=== PATIENT | male | born 1930 | race Caucasian/White ===

== ENCOUNTER 2017-08-15 12:34 | Inpatient (IN) | payer BC, MEDICARE ==
[~2017-08-15] VITALS: Ht 172.7 cm; Wt 90.0 kg
[~2017-08-15 12:34] MED LIST: ACET325T45 PO; AMLO-218 PO; ASPI81TA3 PO; DOCU-144 PO; FINA5TAB PO; LISI40TA9 PO; MELO-210 PO; METF500T4 PO; MULT-876 PO; NIAC500T81 PO; OMEP20CA16 PO; SENN-53 PO; SIME80TA PO; TERA2CAP3 PO
[2017-08-15] MEDS ORDERED: ONDANSETRON 4 MG INJ IV STA (12:37)
[2017-08-15] MEDS ORDERED: morphine 4 MG/ML VIAL IV STA (12:37)
[2017-08-15] MEDS ORDERED: ACETAMINOPHEN 325 MG TAB PO PRN (13:30)
[2017-08-15] MEDS ORDERED: ONDANSETRON 4 MG INJ IV PRN ×2 (13:30→16:00)
[2017-08-15 13:38] LABS: BASOPHIL # 0.1 10^3/ul (0.0-0.1); BASOPHILS % 0.9 % (0.0-2.0); EOSINOPHILS # 0.4 10^3/ul (0.0-0.5); EOSINOPHILS % 4.6 % (0.0-7.0); HEMATOCRIT 32.1 % (42.0-52.0); HEMOGLOBIN 10.4 g/dl (14.0-18.0); LYMPHOCYTES # 1.5 10^3/ul (0.8-2.9); LYMPHOCYTES % 17.3 % (15.0-51.0); MEAN CORPUSCULAR HEMOGLOBIN 27.2 pg (29.0-33.0); MEAN CORPUSCULAR HGB CONC 32.4 g/dl (32.0-37.0); MEAN CORPUSCULAR VOLUME 83.8 fl (82.0-101.0); MONOCYTE # 0.7 10^3/ul (0.3-0.9); MONOCYTES % 8.3 % (0.0-11.0); NEUTROPHIL # 5.8 10^3/ul (1.6-7.5); NEUTROPHILS % 68.1 % (39.0-77.0); PLATELET COUNT 234 10^3/UL (140-415); RED BLOOD COUNT 3.83 10^6/ul (4.70-6.10); WHITE BLOOD COUNT 8.6 10^3/ul (4.8-10.8)
--- NOTE | 2017-08-15 13:48 | RADRPT ---
PROCEDURE: CT Abdomen and Pelvis without contrast. CLINICAL INDICATION: Abdominal pain TECHNIQUE: CT scan of the abdomen and pelvis was performed on a multidetector high-resolution CT s canner without intravenous contrast. Coronal and sagittal reformatted images were obtained from the axial source images. Images were reviewed on a high-resolution PACS workstation. The total exam CTD I equals 19mGy and the total exam DLP equals 1318mGy-cm. One or more of the following dose reduction techniques were used: Automated exposure control, Adjustment of the mA and/or kV according to patie nt size, and/or use of iterative reconstruction technique. DICOM images are available. COMPARISON: Abdominal CT 08/14/2016 FINDINGS: Evaluation of the solid organs is limited given the lack of intravenous contrast administration. Coronary arterial and aortic atherosclerosis. Atelectatic changes to the bilateral lung bases with b ilateral lower brittany bronchiolectasis. The liver, spleen, and adrenals are grossly unremarkable. Pancreas is atrophic. No focal pericholecystic inflammatory changes. No hydronephrosis. No renal or ureteral stone. Bilateral renal cyst. Large amount of stool impaction throughout the rectum and sigmoid colon with gaseous distension of t he proximal colon. No significant retroperitoneal lymphadenopathy, ascites or evidence of pneumoperitoneum. Aortoiliac atherosclerosis. Advanced degenerative changes of the spine. Osteopenia. Enlarged prostate gland bulging into the bladder. Bilateral sacroiliac joint degenerative changes. IMPRESSION: Large amount of stool impaction throughout the rectum and sigmoid colon with gaseous distension of t he proximal colon. The findings are similar to 08/14/2016. RPTAT: AA .Marvel Woodward MD, MD Date Time Electronically viewed and signed by .Marvel Woodward MD, MD on 08/15/2017 13:48 .T/
[2017-08-15 13:58] LABS: INR 1.04; PROTIME 13.6 Sec (12.2-14.2); PT RATIO 1.1
[2017-08-15 13:59] LABS: PARTIAL THROMBOPLASTIN TIME 34.3 Sec (25.0-35.0)
[2017-08-15 14:01] LABS: ALANINE AMINOTRANSFERASE 32 IU/L (13-69); ALBUMIN 4.1 g/dl (3.3-4.9); ALBUMIN/GLOBULIN RATIO 1.07; ALKALINE PHOSPHATASE 92 IU/L (42-121); ANION GAP 19 (8-16); ASPARTATE AMINO TRANSFERASE 20 IU/L (15-46); BILIRUBIN,INDIRECT 0.1 mg/dl (0-1.1); BILIRUBIN,TOTAL 0.1 mg/dl (0.2-1.3); BLOOD UREA NITROGEN 51 mg/dl (7-20); CALCIUM 9.1 mg/dl (8.4-10.2); CARBON DIOXIDE 22 mmol/L (21-31); CHLORIDE 105 mmol/L (97-110); CREATININE 1.26 mg/dl (0.61-1.24); GLUCOSE 124 mg/dl (70-220); POTASSIUM 4.9 mmol/L (3.5-5.1); SODIUM 141 mmol/L (135-144); TOTAL PROTEIN 7.9 g/dl (6.1-8.1)
--- NOTE | 2017-08-15 14:20 | RADRPT ---
PROCEDURE: XR Chest. CLINICAL INDICATION: Shortness of breath TECHNIQUE: Single portable view of the chest was obtained COMPARISON: September 09, 2016 FINDINGS: The trachea is midline. The cardiac silhouette and pulmonary vascularity are prominent. There is tor tuosity of the aorta. There is bibasilar atelectasis. The costophrenic angles are sharp. IMPRESSION: 1. Cardiomegaly and borderline central pulmonary congestion. 2. Bibasilar atelectasis. RPTAT: AAPP Physician Liliya Date Time Electronically viewed and signed by Devon Fernando Physician on 08/15/2017 14:19 JL/
[2017-08-15] MEDS ORDERED: SOD CHLORIDE 0.9% 1,000 ML IV STA (14:31)
--- NOTE | 2017-08-15 14:33 | ERD ---
ER Documentation Chief Complaint Chief Complaint SENT FROM [facility] FOR EVAL OF ABD DISTENTION WITH VOMITING HPI Patient is an 86-year-old male with diabetes who presents with abdominal pain and distention. He had 4 episodes of vomiting yesterday but nothing today. He had a CT scan done yesterday which showed a sigmoid volvulus per radiology. The patient had a bowel movement this morning however. He was somewhat Dr. Rogers for further workup and admission. Please note the history and physical exam is limited secondary to the patient's mental status. ROS All systems reviewed and are negative except as per history of present illness. Medications Home Meds Reported Medications Acetaminophen* (Acetaminophen*) 325 Mg Tablet, 650 MG PO Q4H Y for PAIN LEVEL 1- 5, #30 TAB 08/14/16 Terazosin Hcl* (Terazosin Hcl*) 2 Mg Capsule, 2 MG PO HS, CAP 08/14/16 Simethicone* (Anti-Gas/80*) 80 Mg Tab.chew, 160 MG PO TID Y for WITH MEAL, TAB.CHEW 08/14/16 Sennosides* (Senna Lax*) 8.6 Mg Tablet, 2 TAB PO BID, TAB HOLD FOR LBM 08/14/16 Finasteride* (Proscar*) 5 Mg Tablet, 5 MG PO DAILY, TAB 08/14/16 Omeprazole* (Omeprazole*) 20 Mg Capsule.dr, 20 MG PO QAM, #30 CAP 08/14/16 Amlodipine Besylate* (Norvasc*) 10 Mg Tablet, 10 MG PO DAILY, TAB HOLD FOR SBP<110 08/14/16 Niacin* (Niacin*) 500 Mg Tablet, 500 MG PO DAILY, TAB 08/14/16 Multivit-Min/Iron Fum/Folic AC (Mxsph-Alinnvf-Ghhfgrlx Tablet) 1 Each Tablet, 1 EACH PO DAILY, TAB 08/14/16 Meloxicam* (Mobic*) 15 Mg Tablet, 15 MG PO DAILY, #30 TAB 08/14/16 Metformin Hcl* (Metformin Hcl*) 500 Mg Tablet, 250 MG PO WITH BREAKFAST DINNE, # 60 TAB 08/14/16 Lisinopril* (Lisinopril*) 40 Mg Tablet, 40 MG PO DAILY, #30 TAB HOLD FOR SBP<110 08/14/16 Docusate Sodium* (Colace*) 100 Mg Capsule, 100 MG PO BID, #60 CAP 08/14/16 Aspirin* (Aspirin* Chew) 81 Mg Tab.chew, 81 MG PO DAILY, TAB.CHEW 08/14/16 Allergies Allergies: Coded Allergies: No Known Allergy (Unverified , 08/14/16) PMhx/Soc History of Surgery: No Anesthesia Reaction: Yes Hx Respiratory Disorders: No Hx Psychiatric Problems: No Hx Miscellaneous Medical Probl: Yes (CVA, HTN, GERD, OA) Hx Alcohol Use: No Hx Substance Use: No Hx Tobacco Use: No Smoking Status: Never smoker FmHx Family History: No diabetes Physical Exam Vitals Vital Signs Date Time Temp Pulse Resp B/P Pulse Ox O2 Delivery O2 Flow Rate FiO2 08/15/17 12:39 97.0 94 18 138/64 100 Physical Exam Const: No acute distress Head: Atraumatic Eyes: Normal Conjunctiva ENT: Normal External Ears, Nose and Mouth. Neck: Full range of motion..~ No meningismus. Resp: Clear to auscultation bilaterally Cardio: Regular rate and rhythm, no murmurs Abd: Tender abdomen with tympanitic bowel sounds Skin: No petechiae or rashes Back: No midline or flank tenderness Ext: No cyanosis, or edema Neur: Awake and mild confusion Result Diagram: 08/15/17 1315 08/15/17 1315 Results 24 hrs Laboratory Tests Test 08/15/17 13:15 White Blood Count 8.610^3/ul Red Blood Count 3.8310^6/ul Hemoglobin 10.4g/dl Hematocrit 32.1% Mean Corpuscular Volume 83.8fl Mean Corpuscular Hemoglobin 27.2pg Mean Corpuscular Hemoglobin Concent 32.4g/dl Red Cell Distribution Width 15.0% Platelet Count 55017^3/UL Mean Platelet Volume 9.0fl Neutrophils % 68.1% Lymphocytes % 17.3% Monocytes % 8.3% Eosinophils % 4.6% Basophils % 0.9% Nucleated Red Blood Cells % 0.0/100WBC Neutrophils # 5.810^3/ul Lymphocytes # 1.510^3/ul Monocytes # 0.710^3/ul Eosinophils # 0.410^3/ul Basophils # 0.110^3/ul Nucleated Red Blood Cells # 0.010^3/ul Prothrombin Time 13.6Sec Prothrombin Time Ratio 1.1 INR International Normalized Ratio 1.04 Activated Partial Thromboplast Time 34.3Sec Sodium Level 141mmol/L Potassium Level 4.9mmol/L Chloride Level 105mmol/L Carbon Dioxide Level 22mmol/L Anion Gap 19 Blood Urea Nitrogen 51mg/dl Creatinine 1.26mg/dl Glucose Level 124mg/dl Calcium Level 9.1mg/dl Total Bilirubin 0.1mg/dl Direct Bilirubin 0.00mg/dl Indirect Bilirubin 0.1mg/dl Aspartate Amino Transf (AST/SGOT) 20IU/L Alanine Aminotransferase (ALT/SGPT) 32IU/L Alkaline Phosphatase 92IU/L Troponin I < 0.012ng/ml Total Protein 7.9g/dl Albumin 4.1g/dl Globulin 3.80g/dl Albumin/Globulin Ratio 1.07 Lipase 114U/L Current Medications Medications (Trade) Dose Ordered Sig/Veto Route PRN Reason Start Time Stop Time Status Last Admin Dose Admin Morphine Sulfate (morphine) 4 mg ONCE STAT IV 08/15/17 12:37 08/15/17 12:38 DC Ondansetron HCl (Zofran Inj) 4 mg ONCE STAT IV 08/15/17 12:37 08/15/17 12:38 DC Ondansetron HCl (Zofran Inj) 4 mg BRIDGE ORDER PRN IV NAUSEA AND/OR VOMITING 08/15/17 13:30 08/16/17 13:29 Acetaminophen 650 mg 650 mg ER BRIDGE PRN PO MILD PAIN/FEVER 08/15/17 13:30 08/16/17 13:29 Sodium Chloride (NS) 1,000 ml @ 1,000 mls/hr Q1H STAT IV 08/15/17 14:31 08/15/17 15:30 08/15/17 14:34 Procedures/MDM CT abdomen pelvis shows constipation per radiology. Patient is a 86-year-old male presents with abdominal pain and distention. He had vomiting yesterday but he did have a bowel movement today. A CT scan done as an outpatient shows volvulus. The patient will be admitted to the care of Dr. Rogers. I spoke with Dr. Krishna who is going to have Dr. Estrada evaluate the patient as well. The patient will be admitted to a medical surgical bed. The patient has an elevated BUN and creatinine likely prerenal failure. The patient will be given 1 L of normal saline for fluid resuscitation. Departure Diagnosis: Primary Impression: Constipation Constipation type: unspecified constipation type Qualified Code: K59.00 - Constipation, unspecified constipation type Additional Impression: Abdominal pain Abdominal location: generalized Qualified Code: R10.84 - Generalized abdominal pain Condition: NATA Gomez MD Aug 15, 2017 14:33
[2017-08-15 14:34] LABS: TROPONIN-I < 0.012 ng/ml (0.00-0.12)
[2017-08-15 15:34] VITALS: BP 163/72; RESP 18
[2017-08-15 16:00] VITALS: Ht 172.7 cm; Wt 90.0 kg
[2017-08-15] MEDS ORDERED: MINERAL OIL 133 ML ENEMA PR ONE ×2 (16:00→20:00)
[2017-08-15] MEDS ORDERED: GLUCOSE GEL 15 GRAM TUBE BUCCAL PRN (16:30)
[2017-08-15] MEDS ORDERED: GLUCAGON 1 MG INJ IM PRN (16:30)
[2017-08-15] MEDS ORDERED: GLUCOSE GEL 15 GRAM TUBE PO PRN ×2 (16:30)
[2017-08-15] MEDS ORDERED: DEXTROSE 50% 50 ML SYRINGE IV PRN ×2 (16:30)
[2017-08-15] MEDS: DEXTROSE 5%-0.45% NACL 1,000 ML IV SCH (16:43)
[2017-08-15] MEDS: INSULIN ASPART [NOVOLOG] 3 ML PEN SC SCH ×2 (17:45→23:21)
[2017-08-15 20:00] VITALS: BP 145/66; RESP 22
--- NOTE | 2017-08-15 20:03 | CONS ---
DATE OF ADMISSION: 08/15/2017 DATE OF CONSULTATION: 08/15/2017 TYPE OF CONSULTATION: Surgical. REQUESTING PHYSICIAN: Dr. Rogers from Dr. Krishna and I am seeing the patient as a team of Dr. Jaclyn naik. REASON FOR CONSULTATION: Abdominal distention for maybe 3 to 4 weeks, and a couple of episodes of v omiting for the past couple of days. HISTORY OF PRESENT ILLNESS AND CHIEF COMPLAINT: This is an 86-year-old gentleman who has been a res ident of a snf for several years with other medical problems. Recently, patient has notice d that his abdomen is gradually increase in size and in the past 3 to 4 weeks it has become very dis tended, so they got some x-rays outside. There is suggestion of volvulus, so eventually today they decided to bring the patient to the emergency room. In the past couple of days, he has vomited a co uple of times, but he does not know what kind of vomitus or how much. The patient states that he yates s had a bowel movement today and yesterday, but again, he does not know how much or what color are t he bowel movements. Patient denies any abdominal pain. Actually, last year on 08/15/2016, this pat ient was admitted to this hospital almost with the same problem due to severe distention of the abdo men for about 3 weeks, and at that time, the extensive evaluation was performed including my consult ation as a general surgeon and later on consultation from Dr. aMchado, the colorectal surgeon was ob tained. My impression was that possibility of Florencia syndrome existed. Dr. Machado's impression w as that possibly patient has proctalgia fugax and recommended physical therapy for this matter and a lso he had the impression that the patient had proctalgia, and he was not sure that proctalgia could lead to obstruction or colonic distention, and he also knows the possibility of Florencia's. PAST MEDICAL HISTORY: Patient has had right-sided stroke with right-sided hemiplegia many years ago which has caused him almost to be bedridden, diabetes mellitus, hypertension, GERD, osteoarthriti s, right lower extremity cellulitis. PAST SURGICAL HISTORY: 1. History of operation on the right great toe in the past. 2. Vein stripping for varicose veins many years ago on both sides. 3. Biopsy of the skin cancer on the face, mainly on the left side. 4. History of back surgery. The patient is not sure about it and does not know when, and how, and for what reason. ALLERGIES: Not known. SOCIAL HISTORY: Patient is negative for tobacco ad ETOH. The patient, as mentioned, is a resident of a snf. The reason is because of the right side hemiparesis and hemiplegia. MEDICATIONS: Please refer to the reconciliation sheet. I am not sure exactly what medication the p atrobyn is receiving. PHYSICAL EXAMINATION: GENERAL: Patient is awake, alert, oriented, in no acute distress. He is tapping on his belly, whic h is very, very distended and denies abdominal pain. VITAL SIGNS Through the emergency room: Temperature 97.7, heart rate 68 regular, respirations 18, blood pressure 163/72, saturation 95% on room air. HEENT: Normocephalic. Eyes: Pupils myotic. Equally reactive to light a little bit. Full range o f motion of the extraocular muscles, but there is redness of the left eye with some evidence of blep haritis, also some blepharitis on the right side, and conjunctivitis. Mouth: Full artificial dentu res. NECK: Trachea is in midline. No thyroid enlargement. HEART: Regular rhythm. Grade II systolic ejection murmur. LUNGS: Clear to auscultation. ABDOMEN: Is round, is very distended, especially the upper part. The bowel sounds to me are hypoac tive. There is no guarding. There is tenderness. There is no rebound tenderness. There are no pe ritoneal irritation sign. EXTREMITIES: Upper extremities: Right elbow is flexed and right hand is flexed, and is difficult t o them, almost flexion contracture. The side is normal and the patient moves full range. The patie nt can raise the left leg and left thigh to some extent, but the right side he cannot. The right si de spastic actually is powerless, but there is no flexion contracture on the right or left lower ex tremity. Dorsalis pedis and posterior tibialis, on both sides, is not palpable. Popliteal pulses a re 1+ on both sides. The skin of the lower extremities is warm. LABORATORY DATA: WBC 8600, hemoglobin 10.4, hematocrit 32.1. Differential is 68% neutrophils, whic h is normal. Chemistry: Sodium and potassium normal. Anion gap 19, high. BUN 51, creatinine 1.26 , sign of dehydration possibly. AST, ALT, alkaline phosphatase normal. Albumin 4.1, globulin is 3. 8. IMAGING: Chest x-ray: Cardiomegaly and borderline central pulmonary congestion, bibasilar atelecta sis. CT scan of the abdomen and pelvis was done in the emergency room today without any contrast. The following has been the impression: Large amount of stool impaction throughout the rectum and si gmoid colon with gaseous distention of the proximal colon. The findings are similar to 08/14/2016. This was read by Dr. Guardado. Last piece of information. Physically, I did a rectal examination. There is some excoriation of th e skin of the preanal area posteriorly with probable stage II pressure ulcers on both sides. Rectal examination: The superficial sphincter is lax. The deep sphincter has a good grasping power, but at the level of the deep sphincter, to me there is a tight circumferential ring which is very tender and barely the patient lets me to pass the tip of my index through this, and this is exactly like w hat the patient had last year. Eventually I was able to pass through that one, with the patient fee ling a lot of pain, and beyond that the patient was able to contract his deep sphincter muscle to so me extent. ASSESSMENT: This is an 86-year old gentleman, resident of a snf, in a state of almost bedr idden, except that he is able to sit down on the chair at the bedside. He is not able to walk, the reason being a right hemiparesis. The patient was transferred from snf because of severe d istention of the abdomen. This gradually has increased in size, more aggravated in the past 3 to 4 weeks. So the patient has the following problems: 1. Right-sided hemiplegia. 2. Severely distended large bowel, sigmoid colon, and transverse colon, with some fecal impaction i n the rectum and distal sigmoid colon per CT scan. 3. 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 4. Nontoxic megacolon (Florencia syndrome), question of the cause. 5. Questionable autonomic nervous system disturbances of the colon and rectal area, question of ca use and type. 6. Diabetes mellitus. 7. Hypertension. 8. Stage II bedsore. PLAN AND SUGGESTIONS: 1. At this point of time we are trying to do disimpaction for this patient by giving him some Fleet mineral enemas, I am going to give right now today. 2. Keep patient n.p.o. 3. If it is needed, we may have to put an NG tube to decompress the air from the stomach and small bowel as well. 4. We have to find out about the exact nature of these tender ring or tenderness of the pelvic floo r and probably we are going to get a consultation from another colorectal surgeon. 5. Need to renew and to continue all other medication that the patient has been taking at the [facility]. 6. GI protection against bleeding with Protonix. 7. Prophylaxis against deep vein thrombosis. Dr. Rogers, the internal medicine colleague and who is the primary admitting physician, will take care of the other problems. Dictated By: SHAUNNA FELDMAN/NGOC Conf#: [id number] DID#: [id number]
[2017-08-15] MEDS ORDERED: hydrALAzine 20 MG INJ IV PRN (22:30)
--- NOTE | 2017-08-16 01:04 | HP ---
DATE OF ADMISSION: 08/15/2017 CHIEF COMPLAINT: Abdominal distention and vomiting. HISTORY OF PRESENT ILLNESS: The patient is an 86-year-old gentleman well known to me from previous several admissions. 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 The patient also has history of Florencia syndrome and was at one time thoug ht to be a surgical candidate for diverting colostomy; however, the patient improved with medical ma nagement. The patient was recuperating in a [facility] facility and was noted to have nausea, vomiting and abdominal distension for the last 24 hours. The patient denied any abdominal pain. Th e patient did have a bowel movement yesterday as well as today. The patient reported tht his abdome n feels gassy and tympanic ____. The patient did not have any fever or chills. No history of chest pain. No history of new neurological deficit. No history of diarrhea. No history of hematemesis or melena. No history of headache, dizziness, syncope. The patient did not have any new neurologic al deficit. No history of seizures. The patient was sent to [facility] ER for further lars luation. The patient was seen by ER physician. The patient underwent extensive workup in ER which included a CBC which revealed hemoglobin of 10.4, WBC 8.6, platelet 234. Chemistry: Sodium was 14 1, potassium 4.9, BUN 51, creatinine 1.2 up from a BUN of 33 and creatinine 0.8 back in August. The patient had normal liver enzymes, normal lipase. CT of the abdomen and pelvis revealed a la rge amount of stool impaction throughout the rectum and sigmoid colon with gaseous distention of the proximal colon. Findings are similar to 08/14/2016. The patient is being admitted for further lars luation and management. REVIEW OF SYSTEMS: Total of 12 systems were reviewed and all pertinent positive and negative findin gs have been described in HPI. The rest of the review of systems is unremarkable. The patient is n onambulatory and stays mostly in the bed, and is bed to wheelchair bound at baseline. The patient i s awake, alert, and fairly oriented. PAST MEDICAL HISTORY: The patient back in 2015 was admitted for similar presentation and underwent colonoscopy. The patient was noted to have massively dilated ascending colon up to ascending colon . The scope could not be advanced to the cecum. ____ was noted. Biopsies revealed focal active co litis, nonspecific. No however, were revealed a focal active colitis, nonspecific. No ____ was i dentified. PAST SURGICAL HISTORY: The patient has a history of skin cancer resection from the face, multiple l ocations, low back surgery and minor surgery on his toes for ingrown toenail. FAMILY HISTORY: Noncontributory. SOCIAL HISTORY: No smoking, no alcohol. The patient is a retired pharmacist. ALLERGIES: NONE. MEDICATIONS: Prior to admission, patient was on: 1. Norvasc. 2. Lisinopril, 3. Niacin. 4. Terazosin. 5. Tylenol. 6. Aspirin. 7. Mobic. 8. Colace. 9. Omeprazole. 10. Senna. 11. Simethicone. 12. Metformin. 13. Multivitamin and Proscar. PHYSICAL EXAMINATION: GENERAL: The patient is conscious, awake, alert, fairly oriented. VITAL SIGNS: Temperature 97, pulse 94, respirations 18, blood pressure 138/60, O2 saturation 100% o n room air. HEENT: Atraumatic, normocephalic. Conjunctivae and lids normal. Oropharynx clear. NECK: Supple. No thyromegaly. CHEST: Fairly clear. No use of accessory muscles. CARDIOVASCULAR: ____ normal. Soft systolic murmur heard. ABDOMEN: Soft, distended, nontender, but tympanic. Hyperactive bowel sounds. EXTREMITIES: No leg edema. No clubbing or cyanosis. NEUROLOGICAL: The patient is awake, alert, fairly oriented with dense right hemiplegia is add seque ntial compression devices. LABORATORIES: As above. IMPRESSION: 1. Nontoxic samuel colon/Florencia syndrome. The patient will be kept n.p.o. and will give enema due t o stool infection. Questionable history of anal stenosis as per colonoscopy report. The patient w as seen by Dr. Estrada and clinical impression was spastic anorectal area. Continue to monitor. 2. Diabetes. The patient will be put on sliding scale insulin for now. 3. Acute kidney injury. Continue IV fluids and will continue to monitor renal function. 4. Hypertension. Will start him on IV hydralazine on a p.r.n. basis. 5. BPH. Will hold off on medication until he is able to take p.o. 6. Prophylaxis. Will give GI prophylaxis with Protonix and DVT prophylaxis with Lovenox. Plan of care discussed with the ER physician, Dr. Donavan Steel as well as the patient's daughter. A surgical consultation with Dr. Estrada has been obtained. We will continue to follow him closely. Dictated By: NIRMAL CHERRY/NGOC Conf#: [id number] DID#: [id number]
[2017-08-16 02:00] VITALS: BP 134/66; RESP 20
[2017-08-16] MEDS: DEXTROSE 5%-0.45% NACL 1,000 ML IV SCH ×4 (02:51→23:05)
[2017-08-16] MEDS: PANTOPRAZOLE 40 MG INJ IV SCH (05:35)
[2017-08-16] MEDS: INSULIN ASPART [NOVOLOG] 3 ML PEN SC SCH ×3 (05:39→17:17)
[2017-08-16 06:15] LABS: BASOPHIL # 0.1 10^3/ul (0.0-0.1); BASOPHILS % 1.2 % (0.0-2.0); EOSINOPHILS # 0.5 10^3/ul (0.0-0.5); EOSINOPHILS % 8.6 % (0.0-7.0); HEMATOCRIT 29.4 % (42.0-52.0); HEMOGLOBIN 9.3 g/dl (14.0-18.0); LYMPHOCYTES # 1.2 10^3/ul (0.8-2.9); LYMPHOCYTES % 19.4 % (15.0-51.0); MEAN CORPUSCULAR HEMOGLOBIN 26.7 pg (29.0-33.0); MEAN CORPUSCULAR HGB CONC 31.6 g/dl (32.0-37.0); MEAN CORPUSCULAR VOLUME 84.5 fl (82.0-101.0); MEAN PLATELET VOLUME 9.1 fl (7.4-10.4); MONOCYTE # 0.6 10^3/ul (0.3-0.9); MONOCYTES % 9.8 % (0.0-11.0); NEUTROPHIL # 3.6 10^3/ul (1.6-7.5); NEUTROPHILS % 60.3 % (39.0-77.0); PLATELET COUNT 201 10^3/UL (140-415); RED BLOOD COUNT 3.48 10^6/ul (4.70-6.10); RED CELL DISTRIBUTION WIDTH 14.8 % (11.5-14.5)
[2017-08-16 08:02] VITALS: BP 140/66; RESP 16
[2017-08-16 08:04] LABS: CREATININE 0.85 mg/dl (0.61-1.24); MAGNESIUM 1.7 mg/dl (1.7-2.5); POTASSIUM 4.4 mmol/L (3.5-5.1)
[2017-08-16] MEDS: ENOXAPARIN 40 MG/0.4 ML SYG SC SCH (08:46)
[2017-08-16] MEDS ORDERED: ENOXAPARIN 40 MG/0.4 ML SYG SC SCH (09:00)
[2017-08-16] MEDS ORDERED: MINERAL OIL 133 ML ENEMA PR ONE (12:00)
[2017-08-16] MEDS: MINERAL OIL 30ML CUP PO SCH ×2 (12:38→20:23)
--- NOTE | 2017-08-16 13:19 | PN ---
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 - Clear liquid diet per surgery - Dr. Estrada - Continue to monitor. - Fleet enema due to stool infection.BM X2 today 2. Diabetes. The patient will be put on sliding scale insulin for now. 3. Acute kidney injury- resolved - Continue IV fluids and will continue to monitor renal function. 4. Hypertension. Will start him on IV hydralazine on a p.r.n. basis. 5. BPH. Will hold off on medication until he is able to take p.o. 6. Protonix for GI prophylaxis 7. Lovenox for DVT prophylaxis Dw Dr Bullock/ staff Exam/Review of Systems Vital Signs Vitals Vital Signs Date Time Temp Pulse Resp B/P Pulse Ox O2 Delivery O2 Flow Rate FiO2 08/16/17 08:02 98.5 56 16 140/66 92 Intake and Output 08/15/17 08/15/17 08/16/17 14:59 22:59 06:59 Intake Total 200 ml 1050 ml Balance 200 ml 1050 ml Exam Constitutional: alert Cardiovascular: nl pulses Gastrointestinal: other, soft Results Result Diagram: 08/16/17 0543 08/16/17 0719 Results 24 hrs Laboratory Tests Test 08/15/17 13:15 08/15/17 17:44 08/15/17 23:14 08/16/17 05:38 White Blood Count 8.6 Red Blood Count 3.83 L Hemoglobin 10.4 L Hematocrit 32.1 L Mean Corpuscular Volume 83.8 Mean Corpuscular Hemoglobin 27.2 L Mean Corpuscular Hemoglobin Concent 32.4 Red Cell Distribution Width 15.0 H Platelet Count 234 Mean Platelet Volume 9.0 Neutrophils % 68.1 Lymphocytes % 17.3 Monocytes % 8.3 Eosinophils % 4.6 Basophils % 0.9 Nucleated Red Blood Cells % 0.0 Neutrophils # 5.8 Lymphocytes # 1.5 Monocytes # 0.7 Eosinophils # 0.4 Basophils # 0.1 Nucleated Red Blood Cells # 0.0 Prothrombin Time 13.6 Prothrombin Time Ratio 1.1 INR International Normalized Ratio 1.04 Activated Partial Thromboplast Time 34.3 Sodium Level 141 Potassium Level 4.9 Chloride Level 105 Carbon Dioxide Level 22 Anion Gap 19 H Blood Urea Nitrogen 51 H Creatinine 1.26 H Glucose Level 124 Calcium Level 9.1 Total Bilirubin 0.1 L Direct Bilirubin 0.00 Indirect Bilirubin 0.1 Aspartate Amino Transf (AST/SGOT) 20 Alanine Aminotransferase (ALT/SGPT) 32 Alkaline Phosphatase 92 Troponin I < 0.012 Total Protein 7.9 Albumin 4.1 Globulin 3.80 H Albumin/Globulin Ratio 1.07 Lipase 114 Bedside Glucose 108 112 112 Test 08/16/17 05:43 08/16/17 07:19 08/16/17 12:03 White Blood Count 6.0 # Red Blood Count 3.48 L Hemoglobin 9.3 L Hematocrit 29.4 L Mean Corpuscular Volume 84.5 Mean Corpuscular Hemoglobin 26.7 L Mean Corpuscular Hemoglobin Concent 31.6 L Red Cell Distribution Width 14.8 H Platelet Count 201 Mean Platelet Volume 9.1 Neutrophils % 60.3 Lymphocytes % 19.4 Monocytes % 9.8 Eosinophils % 8.6 H Basophils % 1.2 Nucleated Red Blood Cells % 0.0 Neutrophils # 3.6 Lymphocytes # 1.2 Monocytes # 0.6 Eosinophils # 0.5 Basophils # 0.1 Nucleated Red Blood Cells # 0.0 Sodium Level 142 Potassium Level 4.4 Chloride Level 108 Carbon Dioxide Level 25 Anion Gap 13 Blood Urea Nitrogen 32 #H Creatinine 0.85 Glucose Level 141 Calcium Level 9.0 Magnesium Level 1.7 Bedside Glucose 113 Medications Medications Current Medications Dextrose/Sodium Chloride (D5-1/2ns) 1,000 ml @ 100 mls/hr Q10H IV Last administered on 08/16/17 12:40; Admin Dose 100 MLS/HR; Start 08/15/17 at 16: 00 Pantoprazole (Protonix Iv) 40 mg DAILY@06 IV Last administered on 08/16/17 05 :35; Admin Dose 40 MG; Start 08/16/17 at 06:00 Insulin Aspart (Novolog Insulin Pen) NOVOLOG *MILD* ALGORITHM Q6 SC ; Start at 18:00 Ondansetron HCl (Zofran Inj) 4 mg Q4H PRN IV NAUSEA AND/OR VOMITING; Start at 16:00 Miscellaneous Information 1 ea NOTE XX ; Start 08/15/17 at 16:30 Glucose (Glutose) 15 gm Q15M PRN PO DECREASED GLUCOSE; Start 08/15/17 at 16:30 Glucose (Glutose) 22.5 gm Q15M PRN PO DECREASED GLUCOSE; Start 08/15/17 at 16: 30 Dextrose (D50w Syringe) 25 ml Q15M PRN IV DECREASED GLUCOSE; Start 08/15/17 at 16:30 Dextrose (D50w Syringe) 50 ml Q15M PRN IV DECREASED GLUCOSE; Start 08/15/17 at 16:30 Glucagon (Glucagen) 1 mg Q15M PRN IM DECREASED GLUCOSE; Start 08/15/17 at 16: 30 Glucose (Glutose) 15 gm Q15M PRN BUCCAL DECREASED GLUCOSE; Start 08/15/17 at 16:30 Enoxaparin Sodium (Lovenox) 30 mg DAILY SC Last administered on 08/16/17 08: 46; Admin Dose 30 MG; Start 08/16/17 at 09:00 Hydralazine HCl (Apresoline) 10 mg Q4H PRN IV SBP>150, dbp>95; Start 08/15/17 at 22:30 Mineral Oil (Mineral Oil) 30 ml TID PO Last administered on 08/16/17 12:38; Admin Dose 30 ML; Start 08/16/17 at 13:00 MICHAELA SHULTZ Aug 16, 2017 13:04
--- NOTE | 2017-08-16 14:18 | PN ---
DATE: 08/16/2017 SUBJECTIVE: States that he is very hungry. He does not know if he has had a bowel movement or not but per nurse, the patient had 2 big bowel movements last night after Fleet enema and today he has h ad a small bowel movement. No nausea, no vomiting. OBJECTIVE: GENERAL: Alert, awake, oriented x3, comfortable, in no acute distress. VITAL SIGNS: Temperature 98.5, heart rate 56, respirations 16, blood pressure 140/66, saturation 93 % on room air. LABS: Sodium, potassium normal. BUN decreased to 32, creatinine decreased to 0.85, normal limits. Calcium is 9. Hemogram: WBC 6000 with 60% neutrophils, hemoglobin 9.3, hematocrit 29.4. HEART: Regular. LUNGS: Clear. ABDOMEN: Still distended, but is much softer than last night. Bowel sounds are present. I would s ay is 2+/4+, so it is not normal. EXTREMITIES: Lower extremities are the same. ASSESSMENT: An 86-year-old gentleman who was admitted because of severe distention of the abdomen, gradually increase in the past 2 to 3 months. 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 CT scan yesterday in the emergency room revealed that there is a lot of stool in the rectum and in the sigmoid colon with proximal distention and dilatation of the parti al small bowel loops, causing severe distension and dilatation. PLAN: 1. Start patient on clear liquid. 2. Give mineral oil p.o. 30 mL p.o. t.i.d. 3. Also give Fleet mineral oil enema one today. 4. Patient needs further evaluation in regard to the possible pathology in the anal canal or anorec jerome junction. I will discuss more detail with Dr. Rogers tomorrow and will see if we have to get a consultation from an experienced colorectal surgeon. 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 Possible intrinsic pathology in the anorectal junction. Dictated By: SHAUNNA FELDMAN/NGOC Conf#: [id number] DID#: [id number]
[2017-08-16 15:22] VITALS: BP 164/73; RESP 16
[2017-08-16 20:00] VITALS: BP 173/73; RESP 20
[2017-08-16 22:22] VITALS: BP 144/81; PULSE 77; RESP 18
[2017-08-17 02:00] VITALS: BP 145/65; RESP 20
[2017-08-17] MEDS: PANTOPRAZOLE 40 MG INJ IV SCH (05:34)
[2017-08-17] MEDS: INSULIN ASPART [NOVOLOG] 3 ML PEN SC SCH ×4 (05:36→17:19)
[2017-08-17 05:58] LABS: BASOPHIL # 0.1 10^3/ul (0.0-0.1); BASOPHILS % 1.2 % (0.0-2.0); EOSINOPHILS # 0.5 10^3/ul (0.0-0.5); EOSINOPHILS % 8.2 % (0.0-7.0); HEMATOCRIT 33.2 % (42.0-52.0); HEMOGLOBIN 10.7 g/dl (14.0-18.0); LYMPHOCYTES # 1.2 10^3/ul (0.8-2.9); MEAN CORPUSCULAR HEMOGLOBIN 26.9 pg (29.0-33.0); MEAN CORPUSCULAR HGB CONC 32.2 g/dl (32.0-37.0); MEAN CORPUSCULAR VOLUME 83.4 fl (82.0-101.0); MEAN PLATELET VOLUME 9.1 fl (7.4-10.4); MONOCYTE # 0.7 10^3/ul (0.3-0.9); MONOCYTES % 11.2 % (0.0-11.0); NEUTROPHIL # 3.4 10^3/ul (1.6-7.5); NEUTROPHILS % 57.7 % (39.0-77.0); PLATELET COUNT 226 10^3/UL (140-415); RED BLOOD COUNT 3.98 10^6/ul (4.70-6.10); RED CELL DISTRIBUTION WIDTH 14.6 % (11.5-14.5); WHITE BLOOD COUNT 5.8 10^3/ul (4.8-10.8)
[2017-08-17 06:37] LABS: CALCIUM 8.9 mg/dl (8.4-10.2); CREATININE 0.79 mg/dl (0.61-1.24); POTASSIUM 4.2 mmol/L (3.5-5.1)
[2017-08-17 08:19] VITALS: BP 144/64; RESP 18
[2017-08-17] MEDS: MINERAL OIL 30ML CUP PO SCH ×3 (08:46→20:50)
[2017-08-17] MEDS: ENOXAPARIN 40 MG/0.4 ML SYG SC SCH (08:50)
[2017-08-17] MEDS: DEXTROSE 5%-0.45% NACL 1,000 ML IV SCH ×2 (11:43→20:51)
[2017-08-17 14:19] VITALS: BP 142/70; RESP 18
--- NOTE | 2017-08-17 14:46 | PN ---
DATE: 08/17/2017 SUBJECTIVE: No new complaints No nausea, no vomiting. He does not know if he has had bowel movement or not, but according to the nurse's documentation has had bowel movement yesterday and a small amount today. OBJECTIVE GENERAL: Awake, alert, oriented x3, in no acute distress. VITAL SIGNS: Temperature 97.7, heart rate 59, respirations 18, blood pressure 144/64, saturation 96% on room air. LABORATORY DATA: Today sodium and potassium normal, BUN and creatinine normal. Calcium 8.9. .Hematology: Hemoglobin 5.8, WBC 5600 with 57% neutrophils. Hemoglobin is 10.7, hematocrit is 33.2. HEART: Regular. LUNGS: Clear. ABDOMEN: Still is distended but is at least 50% softer than before. Bowel sounds 2+ to 3+/4+. EXTREMITIES: Legs no calf tenderness. ASSESSMENT: An 86-year-old gentleman who was transferred to the long term because of severe distention of the abdomen and was admitted and was found to have fecal impaction in the rectum, sigmoid and proximal dilatation of the large and small bowel loops. The patient on rectal exam has a distended pelvic floor and possibility a ring constricting the anorectal junction area, I am not sure of the nature of this ring. Once last year, he was admitted with the same. complaining of distention and the findings were constipation and Dr. 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 He had recommended physical therapy but patient never got it and the patient is responding and is be discharged long term. Again, the same findings present. This could be a precipitating factor for constipation in the rectal fecal impaction in the rectum and sigmoid colon. Other alternatives disorder of the bowel could be the cause as well. So we are planning to get a consultation from another colorectal surgeon to see what is the nature of these physical findings and pathology in the anal canal, almost at the junction of the anus and distal rectum. This could be a levator ani syndrome or proctalgia fugax or other entities. Meanwhile, we are trying to make him have bowel movements and clear colorectal area from the impacted stool. Dictated By: SHAUNNA FELDMAN/NGOC Conf#: [id number] DID#: [id number] MTDD
--- NOTE | 2017-08-17 15:31 | PN ---
Date/Time of Note Date/Time of Note DATE: 08/17/17 TIME: 15:25 Assessment/Plan VTE Prophylaxis VTE Prophylaxis Intervention: SCD's Lines/Catheters IV Catheter Type (from Nrs): Peripheral IV Assessment/Plan Chief Complaint/Hosp Course Patient denies any pain, awake alert. Problems: Assessment/Plan - Nontoxic megacolon/Lequire syndrome. Dr. Estrada is following in general surgery consultation. Patient was started on bowel regimen and was giving enema had a bowel movement yesterday. Started on full liquid diet per surgery. -Diabetes mellitus, continue NovoLog per mild algorithm sliding scale. -Hypertension, continue Norvasc and lisinopril, continue hydralazine as needed -BPH, continue Proscar and terazosin -Acute kidney injury, resolved . Further recommendations based on clinical course. Plan of care discussed with Dr. Rogers Exam/Review of Systems Vital Signs Vitals Vital Signs Date Time Temp Pulse Resp B/P Pulse Ox O2 Delivery O2 Flow Rate FiO2 08/17/17 14:19 97.8 55 18 142/70 95 08/16/17 22:22 Room Air Intake and Output 08/16/17 08/16/17 08/17/17 15:00 23:00 07:00 Intake Total 700 ml 1720 ml Balance 700 ml 1720 ml Exam Constitutional: alert, oriented Head: normocephalic Respiratory: normal air movement Cardiovascular: nl pulses Gastrointestinal: distended, soft Extremities: normal pulses Neurological: nl mental status Results Result Diagram: 08/17/17 0537 08/17/17 0537 Results 24 hrs Laboratory Tests Test 08/16/17 17:14 08/16/17 23:34 08/17/17 05:28 08/17/17 05:37 Bedside Glucose 108 101 126 White Blood Count 5.8 Red Blood Count 3.98 L Hemoglobin 10.7 L Hematocrit 33.2 L Mean Corpuscular Volume 83.4 Mean Corpuscular Hemoglobin 26.9 L Mean Corpuscular Hemoglobin Concent 32.2 Red Cell Distribution Width 14.6 H Platelet Count 226 Mean Platelet Volume 9.1 Neutrophils % 57.7 Lymphocytes % 21.0 Monocytes % 11.2 H Eosinophils % 8.2 H Basophils % 1.2 Nucleated Red Blood Cells % 0.0 Neutrophils # 3.4 Lymphocytes # 1.2 Monocytes # 0.7 Eosinophils # 0.5 Basophils # 0.1 Nucleated Red Blood Cells # 0.0 Sodium Level 142 Potassium Level 4.2 Chloride Level 108 Carbon Dioxide Level 24 Anion Gap 14 Blood Urea Nitrogen 15 # Creatinine 0.79 Glucose Level 114 Calcium Level 8.9 Test 08/17/17 11:46 Bedside Glucose 98 Medications Medications Current Medications Dextrose/Sodium Chloride (D5-1/2ns) 1,000 ml @ 100 mls/hr Q10H IV Last administered on 08/17/17 11:43; Admin Dose 100 MLS/HR; Start 08/15/17 at 16: 00 Pantoprazole (Protonix Iv) 40 mg DAILY@06 IV Last administered on 08/17/17 05 :34; Admin Dose 40 MG; Start 08/16/17 at 06:00 Insulin Aspart (Novolog Insulin Pen) NOVOLOG *MILD* ALGORITHM Q6 SC ; Start at 18:00 Ondansetron HCl (Zofran Inj) 4 mg Q4H PRN IV NAUSEA AND/OR VOMITING; Start at 16:00 Miscellaneous Information 1 ea NOTE XX ; Start 08/15/17 at 16:30 Glucose (Glutose) 15 gm Q15M PRN PO DECREASED GLUCOSE; Start 08/15/17 at 16:30 Glucose (Glutose) 22.5 gm Q15M PRN PO DECREASED GLUCOSE; Start 08/15/17 at 16: 30 Dextrose (D50w Syringe) 25 ml Q15M PRN IV DECREASED GLUCOSE; Start 08/15/17 at 16:30 Dextrose (D50w Syringe) 50 ml Q15M PRN IV DECREASED GLUCOSE; Start 08/15/17 at 16:30 Glucagon (Glucagen) 1 mg Q15M PRN IM DECREASED GLUCOSE; Start 08/15/17 at 16: 30 Glucose (Glutose) 15 gm Q15M PRN BUCCAL DECREASED GLUCOSE; Start 08/15/17 at 16:30 Enoxaparin Sodium (Lovenox) 30 mg DAILY SC Last administered on 08/17/17 08: 50; Admin Dose 30 MG; Start 08/16/17 at 09:00 Hydralazine HCl (Apresoline) 10 mg Q4H PRN IV SBP>150, dbp>95 Last administered on 08/16/17 20:49; Admin Dose 10 MG; Start 08/15/17 at 22:30 Mineral Oil (Mineral Oil) 30 ml TID PO Last administered on 08/17/17t 13:05; Admin Dose 30 ML; Start 08/16/17 at 13:00 Metoclopramide HCl (Reglan) 5 mg TID PO ; Start 08/17/17 at 21:00 NATHALIE BARTON Aug 17, 2017 15:31
[2017-08-17 20:34] VITALS: BP 145/61; RESP 16
[2017-08-17] MEDS: TERAZOSIN 2 MG CAP PO SCH (20:50)
[2017-08-17] MEDS: METOCLOPRAMIDE 5 MG TAB PO SCH (20:50)
[2017-08-17] MEDS ORDERED: ZOLPIDEM 5 MG TAB PO PRN (23:00)
[2017-08-18 02:00] VITALS: BP 125/62; RESP 16
[2017-08-18] MEDS: PANTOPRAZOLE 40 MG INJ IV SCH (05:14)
[2017-08-18] MEDS: INSULIN ASPART [NOVOLOG] 3 ML PEN SC SCH ×5 (05:15→22:50)
[2017-08-18] MEDS: DEXTROSE 5%-0.45% NACL 1,000 ML IV SCH ×3 (05:23→23:57)
[2017-08-18 06:37] LABS: BASOPHIL # 0.1 10^3/ul (0.0-0.1); BASOPHILS % 0.9 % (0.0-2.0); EOSINOPHILS # 0.4 10^3/ul (0.0-0.5); HEMATOCRIT 33.3 % (42.0-52.0); HEMOGLOBIN 10.6 g/dl (14.0-18.0); LYMPHOCYTES # 1.3 10^3/ul (0.8-2.9); LYMPHOCYTES % 22.7 % (15.0-51.0); MEAN CORPUSCULAR HEMOGLOBIN 26.8 pg (29.0-33.0); MEAN CORPUSCULAR HGB CONC 31.8 g/dl (32.0-37.0); MEAN CORPUSCULAR VOLUME 84.1 fl (82.0-101.0); MEAN PLATELET VOLUME 9.5 fl (7.4-10.4); MONOCYTE # 0.8 10^3/ul (0.3-0.9); NEUTROPHIL # 3.3 10^3/ul (1.6-7.5); NEUTROPHILS % 55.7 % (39.0-77.0); PLATELET COUNT 217 10^3/UL (140-415); RED BLOOD COUNT 3.96 10^6/ul (4.70-6.10); RED CELL DISTRIBUTION WIDTH 14.6 % (11.5-14.5); WHITE BLOOD COUNT 5.9 10^3/ul (4.8-10.8)
[2017-08-18 06:53] LABS: CALCIUM 9.1 mg/dl (8.4-10.2); CREATININE 0.82 mg/dl (0.61-1.24); POTASSIUM 4.3 mmol/L (3.5-5.1)
[2017-08-18 07:52] VITALS: BP 139/66; RESP 18
[2017-08-18] MEDS: LISINOPRIL 20 MG TAB PO SCH (08:30)
[2017-08-18] MEDS: MINERAL OIL 30ML CUP PO SCH ×3 (08:30→20:55)
[2017-08-18] MEDS: FINASTERIDE 5 MG TAB PO SCH (08:30)
[2017-08-18] MEDS: METOCLOPRAMIDE 5 MG TAB PO SCH ×3 (08:30→20:55)
[2017-08-18] MEDS: AMLODIPINE 10 MG TAB PO SCH (08:31)
[2017-08-18] MEDS: ENOXAPARIN 30 MG/0.3 ML SYG SC SCH (08:35)
--- NOTE | 2017-08-18 11:14 | PN ---
Date/Time of Note Date/Time of Note DATE: 08/18/17 TIME: 11:13 Assessment/Plan VTE Prophylaxis VTE Prophylaxis Intervention: other Lines/Catheters IV C[facility]ter Type (from [facility]): Peripheral IV Assessment/Plan Chief Complaint/Hosp Course - Nontoxic megacolon/Florencia syndrome. Dr. Estrada is following in general surgery consultation. Patient was started on bowel regimen and was giving enema had a bowel movement yesterday. Started on full liquid diet per surgery. -Diabetes mellitus, continue NovoLog per mild algorithm sliding scale. -Hypertension, continue Norvasc and lisinopril, continue hydralazine as needed -BPH, continue Proscar and terazosin -Acute kidney injury, resolved . Problems: Subjective 24 Hr Interval Summary Free Text/Dictation Patient denies abdominal pain, tolerating current diet Exam/Review of Systems Vital Signs Vitals Vital Signs Date Time Temp Pulse Resp B/P Pulse Ox O2 Delivery O2 Flow Rate FiO2 08/18/17 07:52 98.1 58 18 139/66 62 08/16/17 22:22 Room Air Intake and Output 08/17/17 08/17/17 08/18/17 15:00 23:00 07:00 Intake Total 1240 ml 3320 ml 1240 ml Output Total 2 ml Balance 1240 ml 3320 ml 1238 ml Exam Constitutional: well developed Head: atraumatic, normocephalic Neck: supple Respiratory: clear to auscultation Cardiovascular: regular rate and rhythm Gastrointestinal: non-tender, soft Extremities: normal pulses Results Result Diagram: 08/18/17 0515 08/18/17 0515 Results 24 hrs Laboratory Tests Test 08/17/17 11:46 08/17/17 17:17 08/18/17 00:33 08/18/17 05:15 Bedside Glucose 98 103 106 110 White Blood Count 5.9 Red Blood Count 3.96 L Hemoglobin 10.6 L Hematocrit 33.3 L Mean Corpuscular Volume 84.1 Mean Corpuscular Hemoglobin 26.8 L Mean Corpuscular Hemoglobin Concent 31.8 L Red Cell Distribution Width 14.6 H Platelet Count 217 Mean Platelet Volume 9.5 Neutrophils % 55.7 Lymphocytes % 22.7 Monocytes % 13.0 H Eosinophils % 7.0 Basophils % 0.9 Nucleated Red Blood Cells % 0.0 Neutrophils # 3.3 Lymphocytes # 1.3 Monocytes # 0.8 Eosinophils # 0.4 Basophils # 0.1 Nucleated Red Blood Cells # 0.0 Sodium Level 145 H Potassium Level 4.3 Chloride Level 108 Carbon Dioxide Level 28 Anion Gap 13 Blood Urea Nitrogen 11 Creatinine 0.82 Glucose Level 108 Calcium Level 9.1 Test 08/18/17 06:32 Lab Scanned Report REFERENCE LAB Medications Medications Current Medications Dextrose/Sodium Chloride (D5-1/2ns) 1,000 ml @ 100 mls/hr Q10H IV Last administered on 08/18/17 05:23; Admin Dose 100 MLS/HR; Start 08/15/17 at 16: 00 Pantoprazole (Protonix Iv) 40 mg DAILY@06 IV Last administered on 08/18/17 05 :14; Admin Dose 40 MG; Start 08/16/17 at 06:00 Insulin Aspart (Novolog Insulin Pen) NOVOLOG *MILD* ALGORITHM Q6 SC ; Start at 18:00 Ondansetron HCl (Zofran Inj) 4 mg Q4H PRN IV NAUSEA AND/OR VOMITING; Start at 16:00 Miscellaneous Information 1 ea NOTE XX ; Start 08/15/17 at 16:30 Glucose (Glutose) 15 gm Q15M PRN PO DECREASED GLUCOSE; Start 08/15/17 at 16:30 Glucose (Glutose) 22.5 gm Q15M PRN PO DECREASED GLUCOSE; Start 08/15/17 at 16: 30 Dextrose (D50w Syringe) 25 ml Q15M PRN IV DECREASED GLUCOSE; Start 08/15/17 at 16:30 Dextrose (D50w Syringe) 50 ml Q15M PRN IV DECREASED GLUCOSE; Start 08/15/17 at 16:30 Glucagon (Glucagen) 1 mg Q15M PRN IM DECREASED GLUCOSE; Start 08/15/17 at 16: 30 Glucose (Glutose) 15 gm Q15M PRN BUCCAL DECREASED GLUCOSE; Start 08/15/17 at 16:30 Hydralazine HCl (Apresoline) 10 mg Q4H PRN IV SBP>150, dbp>95 Last administered on 08/16/17 20:49; Admin Dose 10 MG; Start 08/15/17 at 22:30 Mineral Oil (Mineral Oil) 30 ml TID PO Last administered on 08/18/17 08:30; Admin Dose 30 ML; Start 08/16/17 at 13:00 Metoclopramide HCl (Reglan) 5 mg TID PO Last administered on 08/18/17 08:30; Admin Dose 5 MG; Start 08/17/17 at 21:00 Amlodipine Besylate (Norvasc) 10 mg DAILY PO Last administered on 08/18/17 08 :31; Admin Dose 10 MG; Start 08/18/17 at 09:00 Finasteride (Proscar) 5 mg DAILY PO Last administered on 08/18/17 08:30; Admin Dose 5 MG; Start 08/18/17 at 09:00 Lisinopril (Zestril) 40 mg DAILY PO Last administered on 08/18/17 08:30; Admin Dose 40 MG; Start 08/18/17 at 09:00 Terazosin HCl (Hytrin) 2 mg HS PO Last administered on 08/17/17 20:50; Admin Dose 2 MG; Start 08/17/17 at 21:00 Enoxaparin Sodium (Lovenox) 30 mg DAILY SC Last administered on 08/18/17 08: 35; Admin Dose 30 MG; Start 08/18/17 at 09:00 Zolpidem Tartrate (Ambien) 5 mg HS PRN PO INSOMNIA; Start 08/17/17 at 23:00 ANGE DELVALLE Aug 18, 2017 11:14
[2017-08-18 14:09] VITALS: BP 120/58; RESP 18
[2017-08-18 19:59] VITALS: BP 136/74; RESP 16
[2017-08-18] MEDS: TERAZOSIN 2 MG CAP PO SCH (20:55)
[2017-08-18] MEDS: ACCU-CHEK XX SCH (23:55)
[2017-08-19 02:53] VITALS: BP 148/67; RESP 16
[2017-08-19] MEDS: DEXTROSE 5%-0.45% NACL 1,000 ML IV SCH ×3 (03:38→20:00)
[2017-08-19] MEDS: PANTOPRAZOLE (EC) 40 MG TAB PO SCH (05:40)
[2017-08-19 07:54] VITALS: BP 112/52; RESP 18
[2017-08-19] MEDS: INSULIN ASPART [NOVOLOG] 3 ML PEN SC SCH ×4 (08:08→21:00)
[2017-08-19] MEDS: FINASTERIDE 5 MG TAB PO SCH (08:59)
[2017-08-19] MEDS: MINERAL OIL 30ML CUP PO SCH ×3 (08:59→20:56)
[2017-08-19] MEDS: LISINOPRIL 20 MG TAB PO SCH (09:00)
[2017-08-19] MEDS: METOCLOPRAMIDE 5 MG TAB PO SCH ×3 (09:00→20:56)
[2017-08-19] MEDS: AMLODIPINE 10 MG TAB PO SCH (09:00)
[2017-08-19] MEDS: ENOXAPARIN 30 MG/0.3 ML SYG SC SCH (09:07)
--- NOTE | 2017-08-19 10:52 | PN ---
Date/Time of Note Date/Time of Note DATE: 08/19/17 TIME: 10:51 Assessment/Plan VTE Prophylaxis VTE Prophylaxis Intervention: other Lines/Catheters IV [facility] (from [facility] Peripheral IV Assessment/Plan Chief Complaint/Hosp Course - Nontoxic megacolon/Florencia syndrome. Dr. Estrada is following in general surgery consultation. Patient was started on bowel regimen and was giving enema had a bowel movement yesterday. Started on full liquid diet per surgery. -Diabetes mellitus, continue NovoLog per mild algorithm sliding scale. -Hypertension, continue Norvasc and lisinopril, continue hydralazine as needed -BPH, continue Proscar and terazosin -Acute kidney injury, resolved . Problems: Subjective 24 Hr Interval Summary Free Text/Dictation Patient had bowel movement yesterday, has no complaints Exam/Review of Systems Vital Signs Vitals Vital Signs Date Time Temp Pulse Resp B/P Pulse Ox O2 Delivery O2 Flow Rate FiO2 08/19/17 07:54 97.8 53 18 112/52 92 08/16/17 22:22 Room Air Intake and Output 08/18/17 08/18/17 08/19/17 15:00 23:00 07:00 Intake Total 200 ml 2400 ml 1650 ml Balance 200 ml 2400 ml 1650 ml Exam Constitutional: well developed Head: atraumatic, normocephalic Neck: supple Respiratory: clear to auscultation Cardiovascular: regular rate and rhythm Gastrointestinal: non-tender, soft Extremities: normal pulses Results Result Diagram: 08/18/17 0515 08/18/17 0515 Results 24 hrs Laboratory Tests Test 08/18/17 12:01 08/18/17 17:07 08/18/17 22:49 08/19/17 08:07 Bedside Glucose 112 93 113 115 Medications Medications Current Medications Dextrose/Sodium Chloride (D5-1/2ns) 1,000 ml @ 100 mls/hr Q10H IV Last administered on 08/19/17t 03:38; Admin Dose 100 MLS/HR; Start 08/15/17 at 16: 00 Ondansetron HCl (Zofran Inj) 4 mg Q4H PRN IV NAUSEA AND/OR VOMITING; Start at 16:00 Miscellaneous Information 1 ea NOTE XX ; Start 08/15/17 at 16:30 Glucose (Glutose) 15 gm Q15M PRN PO DECREASED GLUCOSE; Start 08/15/17 at 16:30 Glucose (Glutose) 22.5 gm Q15M PRN PO DECREASED GLUCOSE; Start 08/15/17 at 16: 30 Dextrose (D50w Syringe) 25 ml Q15M PRN IV DECREASED GLUCOSE; Start 08/15/17 at 16:30 Dextrose (D50w Syringe) 50 ml Q15M PRN IV DECREASED GLUCOSE; Start 08/15/17 at 16:30 Glucagon (Glucagen) 1 mg Q15M PRN IM DECREASED GLUCOSE; Start 08/15/17 at 16: 30 Glucose (Glutose) 15 gm Q15M PRN BUCCAL DECREASED GLUCOSE; Start 08/15/17 at 16:30 Hydralazine HCl (Apresoline) 10 mg Q4H PRN IV SBP>150, dbp>95 Last administered on 08/16/17 20:49; Admin Dose 10 MG; Start 08/15/17 at 22:30 Mineral Oil (Mineral Oil) 30 ml TID PO Last administered on 08/19/17 08:59; Admin Dose 30 ML; Start 08/16/17 at 13:00 Metoclopramide HCl (Reglan) 5 mg TID PO Last administered on 08/19/17 09:00; Admin Dose 5 MG; Start 08/17/17 at 21:00 Amlodipine Besylate (Norvasc) 10 mg DAILY PO Last administered on 08/19/17 09 :00; Admin Dose 10 MG; Start 08/18/17 at 09:00 Finasteride (Proscar) 5 mg DAILY PO Last administered on 08/19/17 08:59; Admin Dose 5 MG; Start 08/18/17 at 09:00 Lisinopril (Zestril) 40 mg DAILY PO Last administered on 08/19/17 09:00; Admin Dose 40 MG; Start 08/18/17 at 09:00 Terazosin HCl (Hytrin) 2 mg HS PO Last administered on 08/18/17 20:55; Admin Dose 2 MG; Start 08/17/17 at 21:00 Enoxaparin Sodium (Lovenox) 30 mg DAILY SC Last administered on 08/19/17 09: 07; Admin Dose 30 MG; Start 08/18/17 at 09:00 Zolpidem Tartrate (Ambien) 5 mg HS PRN PO INSOMNIA Last administered on 22:51; Admin Dose 5 MG; Start 08/17/17 at 23:00 Pantoprazole (Protonix Tab) 40 mg DAILY@06 PO Last administered on 08/19/17 05:40; Admin Dose 40 MG; Start 08/19/17 at 06:00 Diagnostic Test (Pha) (Accu-Chek) 1 02 XX ; Start 08/19/17 at 02:00 ANGE DELVALLE Aug 19, 2017 10:52
[2017-08-19 12:56] VITALS: BP 134/61; RESP 18
[2017-08-19 20:06] VITALS: BP 150/68; RESP 18
[2017-08-19] MEDS: TERAZOSIN 2 MG CAP PO SCH (20:56)
[2017-08-20] MEDS: ACCU-CHEK XX SCH (00:43)
[2017-08-20 02:38] VITALS: BP 149/66; RESP 18
[2017-08-20] MEDS: DEXTROSE 5%-0.45% NACL 1,000 ML IV SCH ×4 (02:53→23:57)
[2017-08-20] MEDS: PANTOPRAZOLE (EC) 40 MG TAB PO SCH (06:06)
[2017-08-20 06:47] LABS: BASOPHIL # 0.1 10^3/ul (0.0-0.1); BASOPHILS % 0.8 % (0.0-2.0); EOSINOPHILS # 0.5 10^3/ul (0.0-0.5); EOSINOPHILS % 8.3 % (0.0-7.0); HEMATOCRIT 29.9 % (42.0-52.0); HEMOGLOBIN 9.7 g/dl (14.0-18.0); LYMPHOCYTES # 1.2 10^3/ul (0.8-2.9); LYMPHOCYTES % 18.6 % (15.0-51.0); MEAN CORPUSCULAR HEMOGLOBIN 27.3 pg (29.0-33.0); MEAN CORPUSCULAR HGB CONC 32.4 g/dl (32.0-37.0); MEAN CORPUSCULAR VOLUME 84.2 fl (82.0-101.0); MEAN PLATELET VOLUME 9.7 fl (7.4-10.4); MONOCYTE # 0.6 10^3/ul (0.3-0.9); MONOCYTES % 10.1 % (0.0-11.0); NEUTROPHIL # 3.8 10^3/ul (1.6-7.5); NEUTROPHILS % 61.4 % (39.0-77.0); PLATELET COUNT 212 10^3/UL (140-415); RED BLOOD COUNT 3.55 10^6/ul (4.70-6.10); RED CELL DISTRIBUTION WIDTH 14.6 % (11.5-14.5); WHITE BLOOD COUNT 6.3 10^3/ul (4.8-10.8)
[2017-08-20 07:14] LABS: CALCIUM 8.4 mg/dl (8.4-10.2); CREATININE 0.85 mg/dl (0.61-1.24); POTASSIUM 3.9 mmol/L (3.5-5.1)
[2017-08-20 07:44] VITALS: BP 120/58; RESP 16
[2017-08-20] MEDS: INSULIN ASPART [NOVOLOG] 3 ML PEN SC SCH ×4 (08:15→20:34)
[2017-08-20] MEDS: MINERAL OIL 30ML CUP PO SCH ×2 (09:04→12:03)
[2017-08-20] MEDS: AMLODIPINE 10 MG TAB PO SCH (09:04)
[2017-08-20] MEDS: FINASTERIDE 5 MG TAB PO SCH (09:04)
[2017-08-20] MEDS: METOCLOPRAMIDE 5 MG TAB PO SCH ×3 (09:04→20:35)
[2017-08-20] MEDS: LISINOPRIL 20 MG TAB PO SCH (09:05)
[2017-08-20] MEDS: ENOXAPARIN 30 MG/0.3 ML SYG SC SCH (09:08)
--- NOTE | 2017-08-20 13:59 | PN ---
DATE: 08/20/2017 SUBJECTIVE: No complaints, no pain. Stated had a big bowel movement today. He also has had anothe r bowel movement last night. OBJECTIVE: GENERAL: Alert, awake, oriented x3. VITAL SIGNS: Temperature 98, heart rate 56 regular, respirations 16, blood pressure 120/58, saturat ion 98% on room air. HEART: Regular. LUNGS: Clear. ABDOMEN: Soft, still with some distention, but much less compared to the admission time. Still you can feel to be tympanic above the umbilicus. LABORATORY DATA: Today sodium and potassium normal, BUN and creatinine normal. Sugar POC 115 and 9 8 respectively on 2 occasions. Hematology: WBC 6300 with 61% neutrophils, hemoglobin is stable at 9.7, hematocrit 29.9. ASSESSMENT AND PLAN: An 86-year-old gentleman who was transferred from a [facility] because of se tequila distention of the abdomen, was found to have impacted stool in the rectum and part of sigmoid c olon with proximal to that dilatation of the large bowel and the small bowel. Patient was admitted, started on mineral oil p.o. and also Fleet mineral oil. Gradually, the patient started having soni l movements and had several bowel loops gradually, the largest one being today, morning. It should be mentioned that upon rectal examination there is a partially stenotic ring almost about 3-4 cm fro m the anal verge. I am not sure about the nature of this. We are planning on and we are trying to get a hold of colorectal surgeon to evaluate this ring, which is tender as well and most probably th is is causing a slow bowel movement and impaction of the stool proximal to that in the rectum and in the sigmoid colon and proximal to that distention of the colon in the form of nontoxic megacolon. PLAN: 1. Today we will stop the p.o. mineral oil. 2. Await consultation from Dr. Epps. Dictated By: SHAUNNA FELDMAN/NGOC Conf#: [id number] DID#: [id number]
--- NOTE | 2017-08-20 14:25 | PN ---
Date/Time of Note Date/Time of Note DATE: 08/20/17 TIME: 14:21 Assessment/Plan VTE Prophylaxis VTE Prophylaxis Intervention: SCD's Lines/Catheters IV Catheter Type (from [facility]): Peripheral IV Assessment/Plan Chief Complaint/Hosp Course Patient is able to have a bowel movement, tolerates diet well. Assessment/Plan - Nontoxic megacolon/Florencia syndrome. Dr. Estrada is following in general surgery consultation. Pending colorectal surgeon for evaluation by Dr. Hart. -Diabetes mellitus, continue NovoLog per mild algorithm sliding scale. -Hypertension, continue Norvasc and lisinopril, continue hydralazine as needed -BPH, continue Proscar and terazosin -Acute kidney injury, resolved . Further recommendations based on clinical course. Plan of care discussed with Dr. Rogers Problems: Exam/Review of Systems Vital Signs Vitals Vital Signs Date Time Temp Pulse Resp B/P Pulse Ox O2 Delivery O2 Flow Rate FiO2 08/20/17 07:44 98.0 56 16 120/58 98 08/16/17 22:22 Room Air Intake and Output 08/19/17 08/19/17 08/20/17 14:59 22:59 06:59 Intake Total 1720 ml 1980 ml Balance 1720 ml 1980 ml Exam Constitutional: alert, oriented Head: normocephalic Respiratory: normal air movement Cardiovascular: nl pulses Gastrointestinal: distended, soft Extremities: normal pulses Neurological: nl mental status Results Result Diagram: 08/20/17 0546 08/20/17 0546 Results 24 hrs Laboratory Tests Test 08/19/17 17:41 08/19/17 21:00 08/20/17 05:46 08/20/17 07:57 Bedside Glucose 122 101 115 White Blood Count 6.3 Red Blood Count 3.55 L Hemoglobin 9.7 L Hematocrit 29.9 L Mean Corpuscular Volume 84.2 Mean Corpuscular Hemoglobin 27.3 L Mean Corpuscular Hemoglobin Concent 32.4 Red Cell Distribution Width 14.6 H Platelet Count 212 Mean Platelet Volume 9.7 Neutrophils % 61.4 Lymphocytes % 18.6 Monocytes % 10.1 Eosinophils % 8.3 H Basophils % 0.8 Nucleated Red Blood Cells % 0.0 Neutrophils # 3.8 Lymphocytes # 1.2 Monocytes # 0.6 Eosinophils # 0.5 Basophils # 0.1 Nucleated Red Blood Cells # 0.0 Sodium Level 142 Potassium Level 3.9 Chloride Level 107 Carbon Dioxide Level 24 Anion Gap 15 Blood Urea Nitrogen 14 Creatinine 0.85 Glucose Level 121 Calcium Level 8.4 Test 08/20/17 12:08 Bedside Glucose 98 Medications Medications Current Medications Dextrose/Sodium Chloride (D5-1/2ns) 1,000 ml @ 100 mls/hr Q10H IV Last administered on 08/20/17 13:01; Admin Dose 100 MLS/HR; Start 08/15/17 at 16: 00 Ondansetron HCl (Zofran Inj) 4 mg Q4H PRN IV NAUSEA AND/OR VOMITING; Start at 16:00 Miscellaneous Information 1 ea NOTE XX ; Start 08/15/17 at 16:30 Glucose (Glutose) 15 gm Q15M PRN PO DECREASED GLUCOSE; Start 08/15/17 at 16:30 Glucose (Glutose) 22.5 gm Q15M PRN PO DECREASED GLUCOSE; Start 08/15/17 at 16: 30 Dextrose (D50w Syringe) 25 ml Q15M PRN IV DECREASED GLUCOSE; Start 08/15/17 at 16:30 Dextrose (D50w Syringe) 50 ml Q15M PRN IV DECREASED GLUCOSE; Start 08/15/17 at 16:30 Glucagon (Glucagen) 1 mg Q15M PRN IM DECREASED GLUCOSE; Start 08/15/17 at 16: 30 Glucose (Glutose) 15 gm Q15M PRN BUCCAL DECREASED GLUCOSE; Start 08/15/17 at 16:30 Hydralazine HCl (Apresoline) 10 mg Q4H PRN IV SBP>150, dbp>95 Last administered on 08/16/17 20:49; Admin Dose 10 MG; Start 08/15/17 at 22:30 Metoclopramide HCl (Reglan) 5 mg TID PO Last administered on 08/20/17 12:03; Admin Dose 5 MG; Start 08/17/17 at 21:00 Amlodipine Besylate (Norvasc) 10 mg DAILY PO Last administered on 08/20/17 09 :04; Admin Dose 10 MG; Start 08/18/17 at 09:00 Finasteride (Proscar) 5 mg DAILY PO Last administered on 08/20/17 09:04; Admin Dose 5 MG; Start 08/18/17 at 09:00 Lisinopril (Zestril) 40 mg DAILY PO Last administered on 08/20/17 09:05; Admin Dose 40 MG; Start 08/18/17 at 09:00 Terazosin HCl (Hytrin) 2 mg HS PO Last administered on 08/19/17 20:56; Admin Dose 2 MG; Start 08/17/17 at 21:00 Enoxaparin Sodium (Lovenox) 30 mg DAILY SC Last administered on 08/20/17 09: 08; Admin Dose 30 MG; Start 08/18/17 at 09:00 Zolpidem Tartrate (Ambien) 5 mg HS PRN PO INSOMNIA Last administered on 22:51; Admin Dose 5 MG; Start 08/17/17 at 23:00 Pantoprazole (Protonix Tab) 40 mg DAILY@06 PO Last administered on 08/20/17 06:06; Admin Dose 40 MG; Start 08/19/17 at 06:00 Diagnostic Test (Pha) (Accu-Chek) 1 ea 02 XX ; Start 08/19/17 at 02:00 NATHALIE BARTON Aug 20, 2017 14:25
[2017-08-20 14:36] VITALS: BP 107/56; RESP 18
[2017-08-20 19:47] VITALS: BP 124/70; RESP 18
[2017-08-20] MEDS: TERAZOSIN 2 MG CAP PO SCH (20:35)
[2017-08-21] MEDS: DEXTROSE 5%-0.45% NACL 1,000 ML IV SCH ×2 (02:00→09:06)
[2017-08-21] MEDS: ACCU-CHEK XX SCH (02:00)
[2017-08-21 02:45] VITALS: BP 133/61; RESP 18
[2017-08-21] MEDS: PANTOPRAZOLE (EC) 40 MG TAB PO SCH (05:22)
[2017-08-21 05:50] LABS: BASOPHIL # 0.1 10^3/ul (0.0-0.1); EOSINOPHILS # 0.6 10^3/ul (0.0-0.5); EOSINOPHILS % 8.1 % (0.0-7.0); HEMATOCRIT 30.6 % (42.0-52.0); HEMOGLOBIN 9.8 g/dl (14.0-18.0); LYMPHOCYTES # 1.4 10^3/ul (0.8-2.9); LYMPHOCYTES % 19.6 % (15.0-51.0); MEAN CORPUSCULAR HEMOGLOBIN 26.8 pg (29.0-33.0); MEAN CORPUSCULAR VOLUME 83.8 fl (82.0-101.0); MEAN PLATELET VOLUME 9.3 fl (7.4-10.4); MONOCYTE # 0.7 10^3/ul (0.3-0.9); MONOCYTES % 9.2 % (0.0-11.0); NEUTROPHIL # 4.4 10^3/ul (1.6-7.5); NEUTROPHILS % 61.4 % (39.0-77.0); PLATELET COUNT 207 10^3/UL (140-415); RED BLOOD COUNT 3.65 10^6/ul (4.70-6.10); RED CELL DISTRIBUTION WIDTH 14.6 % (11.5-14.5); WHITE BLOOD COUNT 7.2 10^3/ul (4.8-10.8)
[2017-08-21 06:23] LABS: CALCIUM 8.4 mg/dl (8.4-10.2); CREATININE 0.89 mg/dl (0.61-1.24); POTASSIUM 4.1 mmol/L (3.5-5.1)
[2017-08-21 07:24] VITALS: BP 147/65; RESP 18
[2017-08-21] MEDS: INSULIN ASPART [NOVOLOG] 3 ML PEN SC SCH ×2 (08:15→12:15)
[2017-08-21] MEDS: METOCLOPRAMIDE 5 MG TAB PO SCH ×2 (09:04→12:35)
[2017-08-21] MEDS: LISINOPRIL 20 MG TAB PO SCH (09:04)
[2017-08-21] MEDS: AMLODIPINE 10 MG TAB PO SCH (09:04)
[2017-08-21] MEDS: FINASTERIDE 5 MG TAB PO SCH (09:05)
[2017-08-21] MEDS: ENOXAPARIN 30 MG/0.3 ML SYG SC SCH (09:13)
[2017-08-21 13:39] VITALS: BP 121/58; RESP 18
--- NOTE | 2017-08-21 15:49 | DS ---
Date/Time of Note Date/Time of Note DATE: 08/21/17 TIME: 15:47 Discharge Summary Admission/Discharge Info Admit Date/Time Aug 15, 2017 at 13:01 Discharge Date/Time Patient Condition: Stable Hx of Present Illness The patient is an 86-year-old gentleman well known to me from previous several admissions. 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 The patient also has history of Florencia syndrome and was at one time thought to be a surgical candidate for diverting colostomy; however, the patient improved with medical management. The patient was recuperating in a shelter facility and was noted to have nausea, vomiting and abdominal distension for the last 24 hours. The patient denied any abdominal pain. The patient did have a bowel movement yesterday as well as today. The patient reported tht his abdomen feels gassy and tympanic ____. The patient did not have any fever or chills. No history of chest pain. No history of new neurological deficit. No history of diarrhea. No history of hematemesis or melena. No history of headache, dizziness, syncope. The patient did not have any new neurological deficit. No history of seizures. The patient was sent to [facility] ER for further evaluation. The patient was seen by ER physician. The patient underwent extensive workup in ER which included a CBC which revealed hemoglobin of 10.4, WBC 8.6, platelet 234. Chemistry: Sodium was 141, potassium 4.9, BUN 51, creatinine 1.2 up from a BUN of 33 and creatinine 0.8 back in August 2016. The patient had normal liver enzymes, normal lipase. CT of the abdomen and pelvis revealed a large amount of stool impaction throughout the rectum and sigmoid colon with gaseous distention of the proximal colon. Findings are similar to 08/14/2016. The patient is being admitted for further evaluation and management. Hospital Course - Nontoxic megacolon/[place] syndrome. Possible bowel obstruction, resolved. Patient was evaluated by Dr. Krishna in general surgery consultation. Patient was started on bowel regimen and Reglan was able to have a bowel movement. -Diabetes mellitus, continue NovoLog per mild algorithm sliding scale. -Hypertension, continue Norvasc and lisinopril, continue hydralazine as needed -BPH, continue Proscar and terazosin -Acute kidney injury, resolved . Home Meds Reported Medications Acetaminophen* (Acetaminophen*) 325 Mg Tablet, 650 MG PO Q4H Y for PAIN LEVEL 1- 5, #30 TAB 08/14/16 Terazosin Hcl* (Terazosin Hcl*) 2 Mg Capsule, 2 MG PO HS, CAP 08/14/16 Simethicone* (Anti-Gas/80*) 80 Mg Tab.chew, 160 MG PO TID Y for WITH MEAL, TAB.CHEW 08/14/16 Sennosides* (Senna Lax*) 8.6 Mg Tablet, 2 TAB PO BID, TAB HOLD FOR LBM 08/14/16 Finasteride* (Proscar*) 5 Mg Tablet, 5 MG PO DAILY, TAB 08/14/16 Omeprazole* (Omeprazole*) 20 Mg Capsule.dr, 20 MG PO QAM, #30 CAP 08/14/16 Amlodipine Besylate* (Norvasc*) 10 Mg Tablet, 10 MG PO DAILY, TAB HOLD FOR SBP<110 08/14/16 Niacin* (Niacin*) 500 Mg Tablet, 500 MG PO DAILY, TAB 08/14/16 Multivit-Min/Iron Fum/Folic AC (Ileis-Bzqprlr-Xputcgyb Tablet) 1 Each Tablet, 1 EACH PO DAILY, TAB 08/14/16 Meloxicam* (Mobic*) 15 Mg Tablet, 15 MG PO DAILY, #30 TAB 08/14/16 Metformin Hcl* (Metformin Hcl*) 500 Mg Tablet, 250 MG PO WITH BREAKFAST DINNE, # 60 TAB 08/14/16 Lisinopril* (Lisinopril*) 40 Mg Tablet, 40 MG PO DAILY, #30 TAB HOLD FOR SBP<110 08/14/16 Docusate Sodium* (Colace*) 100 Mg Capsule, 100 MG PO BID, #60 CAP 08/14/16 Aspirin* (Aspirin* Chew) 81 Mg Tab.chew, 81 MG PO DAILY, TAB.CHEW 08/14/16 Follow-up Plan BMP in 1-2 weeks Primary Care Provider Pardeep Rogers MD Pending Labs Laboratory Tests Test 08/20/17 17:42 08/20/17 20:33 08/21/17 05:31 08/21/17 07:54 Bedside Glucose 102mg/dL (70-220) 105mg/dL (70-220) 110mg/dL (70-220) White Blood Count 7.210^3/ul (4.8-10.8) Red Blood Count 3.6510^6/ul (4.70-6.10) Hemoglobin 9.8g/dl (14.0-18.0) Hematocrit 30.6% (42.0-52.0) Mean Corpuscular Volume 83.8fl (82.0-101.0) Mean Corpuscular Hemoglobin 26.8pg (29.0-33.0) Mean Corpuscular Hemoglobin Concent 32.0g/dl (32.0-37.0) Red Cell Distribution Width 14.6% (11.5-14.5) Platelet Count 07007^3/UL (140-415) Mean Platelet Volume 9.3fl (7.4-10.4) Neutrophils % 61.4% (39.0-77.0) Lymphocytes % 19.6% (15.0-51.0) Monocytes % 9.2% (0.0-11.0) Eosinophils % 8.1% (0.0-7.0) Basophils % 1.0% (0.0-2.0) Nucleated Red Blood Cells % 0.0/100WBC (0.0-0.0) Neutrophils # 4.410^3/ul (1.6-7.5) Lymphocytes # 1.410^3/ul (0.8-2.9) Monocytes # 0.710^3/ul (0.3-0.9) Eosinophils # 0.610^3/ul (0.0-0.5) Basophils # 0.110^3/ul (0.0-0.1) Nucleated Red Blood Cells # 0.010^3/ul (0.0-0.0) Sodium Level 143mmol/L (135-144) Potassium Level 4.1mmol/L (3.5-5.1) Chloride Level 107mmol/L (97-110) Carbon Dioxide Level 25mmol/L (21-31) Anion Gap 15 (8-16) Blood Urea Nitrogen 15mg/dl (7-20) Creatinine 0.89mg/dl (0.61-1.24) Glucose Level 106mg/dl (70-220) Calcium Level 8.4mg/dl (8.4-10.2) Test 08/21/17 11:59 Bedside Glucose 119mg/dL (70-220) NATHALIE BARTON Aug 21, 2017 15:49
--- NOTE | 2017-08-21 16:36 | PN ---
DATE: 08/21/2017 SUBJECTIVE. No complaint. Apparently has had a very large bowel movement last night and patient is very happy about that. He has been eating regular diet, tolerating. OBJECTIVE GENERAL: Awake, alert, oriented for 86 year old. VITAL SIGNS: Temperature 98.2, heart rate 76, respiration 18, blood pressure 121/58, saturation 93% and 98% respectively today. HEART: Regular. LUNGS: Clear. ABDOMEN: Soft. Still there is some tympany present, but it is much less than admission time LABORATORY DATA: Sodium, potassium, BUN, creatinine normal. POC glucose 110 and 119. Hematology: WBC 7200 with 61% neutrophils. Hemoglobin and hematocrit is stable at 9.8. ASSESSMENT AND PLAN: This is an 86-year-old gentleman who was transferred from a longterm because of severe distention of the abdomen suspicious for obstruction. The patient was seen in the emergency room, CT scan was performed showed fecal impaction in the rectum and sigmoid colon and proximal dilatation of the colon and small bowel with air.(( should mention that this pt. was admitted in july 2016, with the same problem and eventually responded to conservative treatment and discharged to longterm and apparantly was symptom free for one year)), The patient was admitted and kept n.p.o., started on mineral oil and also p.o. and also gave him some mineral oil Fleet enemas. Gradually over the course of a few days the patient has started having bowel movements, several of them, and eventually advanced the diet to full liquid and regular diet and patient is tolerating. Also we added Reglan 5 mg p.o. t.i.d. yesterday morning, I stopped the mineral oil and continued the Reglan. Last night he had another big bowel movement. We had a discussion with Dr. Krishna who was original consultant intern. Today, Dr. 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 Krishna examined that one too and so eventually we decided that since we do not have access to a colorectal surgeon, we are going to discharge the patient to the longterm to be under treatment for other problems like diabetes mellitus, hypertension and make sure that the patient gets Reglan 5 mg p.o. t.i.d. in a longterm and also p.r.n. milk of magnesia. The patient understands and accepts, awaiting for Dr. Rogers's service, internal medicine to discharge the patient. P.r.n. the patient can be sent to Dr. Krishna' office for followup. Dictated By: SHAUNNA BUCHANAN MD PS/NTS Conf#: [id number] DID#: [id number] CC: NIRMAL ROGERS MD;*EndCC* MTDD
== END 2017-08-21 17:40 | DRG 394 ==
LOC: E/R 12:34 → MS2 13:01
PROVIDERS: ADMIT Internal Medicine; ATTEND Internal Medicine
DX: K59.39 Other megacolon (principal); N17.9 Acute kidney failure, unspecified; L89.312 Pressure ulcer of right buttock, stage 2; L89.322 Pressure ulcer of left buttock, stage 2; I69.351 Hemiplegia and hemiparesis following cerebral infarction affecting right dominant side; E11.9 Type 2 diabetes mellitus without complications; M19.90 Unspecified osteoarthritis, unspecified site; I10 Essential (primary) hypertension; K21.9 Gastro-esophageal reflux disease without esophagitis; N40.0 Benign prostatic hyperplasia without lower urinary tract symptoms; K62.4 Stenosis of anus and rectum; K56.41 Fecal impaction; Z79.82 Long term (current) use of aspirin; Z79.84 Long term (current) use of oral hypoglycemic drugs; Z85.828 Personal history of other malignant neoplasm of skin
CPT/HCPCS: 36415; 71010; 74176; 80048; 80053; 82962; 83690; 83735; 84484; 85025; 85610; 85730; 86850; 86900; 86901; 93005; C9113; J0360; J1650; J1815; J2270; J2405; J7030; J7042

== ENCOUNTER 2018-06-15 13:04 | Inpatient (IN) | END 2018-06-21 20:00 | DRG 378 ==